=== PATIENT | female | born 1950 | race Caucasian/White ===

== ENCOUNTER 2017-01-08 08:07 | Day surgery (SDC) | payer OTHER, BC ==
[2017-01-05 09:39] VITALS: BMI 40.0
[2017-01-08] MEDS ORDERED: BUPIVACAINE HCL/PF 2.5 MG/ML - 30 ML VIAL IJ ONE (10:22)
[2017-01-08] MEDS ORDERED: MIDAZOLAM HCL 2 MG/2 ML SINGLE DOSE VIAL ONE (10:23)
[2017-01-08] MEDS ORDERED: PROPOFOL 20 ML ONE (10:23)
[2017-01-08] MEDS ORDERED: LIDOCAINE HCL/PF 2% SDV 5ML VIAL ONE (10:24)
[2017-01-08] MEDS ORDERED: DEXAMETHASONE SOD PHOSPHATE 4 MG/1 ML VIAL ONE (10:36)
[2017-01-08] MEDS ORDERED: ONDANSETRON 4 MG/2 ML VIAL ONE (10:36)
[2017-01-08] MEDS ORDERED: ceFAZolin SODIUM 1 GM VIAL ONE (10:37)
[2017-01-08] MEDS ORDERED: KETOROLAC TROMETHAMINE 30 MG/1 ML VIAL ONE (10:58)
[2017-01-08] MEDS ORDERED: BUPIVACAINE HCL/PF 0.25% (2.5MG/ML) 10 ML VIAL IJ ONE (10:59)
[2017-01-08] MEDS ORDERED: oxyCODONE HCL 5 MG TABLET PO PRN (11:21)
[2017-01-08] MEDS ORDERED: LACTATED RINGERS SOLUTION 1,000 ML IV SCH (11:30)
[2017-01-08] MEDS ORDERED: PROMETHAZINE HCL 25 MG/1 ML VIAL IVPUSH PRN (11:34)
[2017-01-08 16:34] VITALS: PULSE 56
[2017-01-08 16:37] VITALS: BP 125/74; TEMP 98
--- NOTE | 2017-01-11 01:06 | OP ---
DATE OF OPERATION: 01/08/2017 SURGEON: Mary Jo Arguelles MD FEATHER MAKER: MELL Sahni PREOPERATIVE DIAGNOSIS: 1. Right knee mediolateral meniscal tear. 2. Right knee cartilage injury. 3. Right knee synovitis. POSTOPERATIVE DIAGNOSIS: 1. Right knee mediolateral meniscal tear. 2. Right knee cartilage injury. 3. Right knee synovitis. PROCEDURE: 1. Right knee arthroscopy with partial meniscectomy of medial and lateral meniscus. 2. Right knee arthroscopy with chondroplasty and abrasioplasty. 3. Right knee arthroscopy with synovectomy major. CPT code 75418, 25838, 18468. FINDINGS: 1. Medial meniscus body and posterior horn tear. 2. Lateral meniscus body and posterior horn tear. 3. Synovitis of patellofemoral, medial and lateral notch area. 4. Antegrade 1-2 cartilage change of medial femoral condyle and tibial plateau. 5. ACL and PCL intact. 6. 30% lateral femoral condyle grade 4 changes surrounded by grade 2-3 changes of the lateral femoral condyle. 7. Grade 2-4 cartilage changes of patellofemoral trochlea and the patellofemoral joint. PROCEDURE: Informed consent was obtained. The patient was taken to the operating room where the right lower extremity was prepped and draped in a sterile fashion. A tourniquet was placed on the right upper thigh but not inflated. Using standard arthroscopic technique, a lateral incision and portal were made which allowed for introduction of the camera into the suprapatellar bursa. This was then taken to the medial joint line where under direct visualization, a medial incision and portal were made. Excessive synovium noted in the medial, lateral, patellofemoral and notch area was removed by the up-biting shaver and Bovie cautery. This was found to bring inflammatory tissue into the joint surface, a source of joint pain and dysfunction. Probing of the medial and lateral meniscus found tears described in the findings. These were removed with an up-biting shaver and taken back to a stable rim. Grade 2-3 degenerative changes were treated with chondroplasty, removing all flaking surfaces with low setting Bovie used along the periphery. Grade 4 changes were treated with abrasion-plasty. All areas of the knee were once again re-examined. The knee was then drained. A single suture was placed on all portals. Sterile dressing was placed. The patient was transferred to the recovery room. MARY JO ARGUELLES M.D. [id number]
--- NOTE | 2017-01-13 08:54 | PATH ---
Surgical Pathology Report Patient Name: WILL INFANTE [facility]. Rec. #: [id number] /Age/Gender: 1950 (Age: 66) / F Account: [id number] Location: [facility] AMBULATORY Taken: 01/08/2017 Received: 01/08/2017 Reported: 01/13/2017 Physicians: Michele Wiley M.D. Specimen(s) Received RIGHT KNEE SHAVINGS Clinical History Internal derangement Final Diagnosis RIGHT KNEE, ARTHROSCOPIC SHAVINGS: SYNOVIUM WITH MARKED LYMPHOPLASMACYTIC INFILTRATE, AND FIBROCARTILAGE WITH MYXOID DEGENERATIVE CHANGES. Comment: The inflammatory pattern in the synovium is not specific, but can be seen in rheumatoid arthritis and other rheumatologic disorders. Recommend correlation with clinical findings and followup as clinically indicated. Electronically Signed Bernardo Tineo M.D. Gross Description Received in formalin, labeled "right knee shavings," is a 3.7 x 3.4 x 0.3 cm. aggregate of guerrero-yellow soft tissue fragments. A wireless sales representative portion is submitted in one cassette. 01/11/2017 [facility]01/11/2017
== END 2017-01-08 14:35 | disposition home or self-care (01) ==
LOC: FASU 08:07
PROVIDERS: ATTEND Orthopaedic Surgery
PROC: 0SBC4ZZ Excision of Right Knee Joint, Percutaneous Endoscopic Approach (ICD-10-PCS; 2017-01-08)
PROC: 0SBC4ZZ Excision of Right Knee Joint, Percutaneous Endoscopic Approach (ICD-10-PCS; 2017-01-08)
PROC: 0SBC4ZZ Excision of Right Knee Joint, Percutaneous Endoscopic Approach (ICD-10-PCS; principal; 2017-01-08 10:47)
DX: S83.241A Other tear of medial meniscus, current injury, right knee, initial encounter (principal); S83.281A Other tear of lateral meniscus, current injury, right knee, initial encounter; S83.8X1A Sprain of other specified parts of right knee, initial encounter; M65.861 Other synovitis and tenosynovitis, right lower leg; X58.XXXA Exposure to other specified factors, initial encounter; Y93.9 Activity, unspecified; Y92.9 Unspecified place or not applicable
CPT/HCPCS: 88304-TC; 94760